=== PATIENT | female | born 1945 | race Two or more races ===

== ENCOUNTER 2017-12-09 15:03 | Emergency (ER) | payer MEDICARE, OTHER ==
[~2017-12-09] VITALS: Ht 162.6 cm; Wt 63.5 kg
[2017-12-09 15:15] VITALS: BP 134/88
== END 2017-12-09 16:26 | disposition home or self-care (01) ==
LOC: ER 15:11
DX: J40 Bronchitis, not specified as acute or chronic (principal); H61.21 Impacted cerumen, right ear; I10 Essential (primary) hypertension

== ENCOUNTER 2018-07-14 13:16 | Emergency (ER) | payer MEDICARE ==
[~2018-07-14] VITALS: Ht 160 cm; Wt 67.6 kg
[2018-07-14 13:38] VITALS: BP 142/73
== END 2018-07-14 15:18 | disposition home or self-care (01) ==
LOC: ER 13:16
DX: S86.911A Strain of unspecified muscle(s) and tendon(s) at lower leg level, right leg, initial encounter (principal); F41.9 Anxiety disorder, unspecified; I10 Essential (primary) hypertension; Z86.718 Personal history of other venous thrombosis and embolism; X58.XXXA Exposure to other specified factors, initial encounter; Y93.89 Activity, other specified; Y92.89 Other specified places as the place of occurrence of the external cause; Y99.8 Other external cause status
CPT/HCPCS: 93971